=== PATIENT | female | born 1985 | race American Indian/Alaskan Native ===

== ENCOUNTER 2020-01-21 16:17 | Emergency (ER) | payer BC ==
[2020-01-21] MEDS ORDERED: FAMOTIDINE 20 MG/2 ML INJ IV ONE (16:40)
[2020-01-21] MEDS ORDERED: methylPREDNISolone Sod Succinate 125 MG/2 ML INJ IV ONE (16:40)
--- NOTE | 2020-01-21 16:40 | Emergency Department Report ---
HPI - General Chief Complaint: Allergic Reaction PUI?: No Time Seen by Provider: 01/21/20 16:33 - HPI HPI: 35-year-old female with a past medical history of asthma and hypertension presents to the hospital complaining of symptoms of allergic reaction. Since January 10 patient has had intermittent whelps, pruritus, and rashes. Today just before noon patient developed swelling and tingling to her left lower lip. She took 2 Benadryl tablets at noon but symptoms persist. She complains of some mild shortness of breath. Patient denies any new known exposures to lotions, soaps, foods, or medications. She takes lisinopril 10 mg daily since 2010 ED Past Medical Hx - Past Medical History Previous Medical History?: Yes Hx Hypertension: Yes Hx Asthma: Yes - Surgical History Past Surgical History?: No - Social History Smoking Status: Never Smoker - Medications Home Medications: Home Medications Medication Instructions Recorded Confirmed Last Taken Type Amlodipine Besylate [Norvasc] 5 mg PO DAILY #30 tablet 01/21/20 Unknown Rx EPINEPHrine [Epipen] 0.3 mg IJ PRN PRN #1 auto.injct 01/21/20 Unknown Rx Famotidine [Pepcid] 20 mg PO BID #20 tablet 01/21/20 Unknown Rx diphenhydrAMINE [Benadryl CAP] 1 - 2 tab PO Q6HR PRN #20 capsule 01/21/20 Unknown Rx predniSONE [Deltasone] 40 mg PO QDAY 5 Days tab 01/21/20 Unknown Rx ED Review of Systems ROS: Stated complaint: ALLERGIC REACTION Other details as noted in HPI Comment: All other systems reviewed and negative Physical Exam - Physical Exam Vital Signs: Vital Signs 01/21/20 16:25 Temperature 97.8 F Pulse Rate 112 H Respiratory 20 Rate Blood Pressure 137/87 O2 Sat by Pulse 97 Oximetry Physical Exam: General: No acute distress Head: Atraumatic Eyes: normal appearance ENT: Moist mucous membranes, no posterior pharyngeal swelling, no tongue swelling, left lower lip edema Neck: Normal appearance, no midline tenderness Chest: Clear to auscultation bilaterally CV: Regular rate and rhythm Abdomen: Soft, normal bowel sounds, nontender, nondistended, no rebound or guarding Back: Normal inspection Extremity: Normal inspection, full range of motion Neuro: Alert O x 3, no facial asymmetry, speech clear, no gross motor sensory de ficit Psych: Appropriate behavior Skin: Patient has urticarial rash to extremities, buttocks, and torso ED Course Vital Signs 01/21/20 16:25 Temperature 97.8 F Pulse Rate 112 H Respiratory 20 Rate Blood Pressure 137/87 O2 Sat by Pulse 97 Oximetry - Reevaluation(s) Reevaluation #1: 01/21/20 19:58 Patient feeling much better. Rash and pruritus have resolved. Lip swelling is improving. Patient denies shortness of breath ED Medical Decision Making - Medical Decision Making Patient presents with allergy symptoms. Patient is on lisinopril. Diagnosis is angioedema versus allergic reaction. Lisinopril discontinued. Norvasc will be provided. Patient improved with ED treatment of steroids, Benadryl, and Pepcid. Allergy meds will be prescribed - Differential Diagnosis Angioedema, allergic reaction Critical Care Time: No Critical care attestation.: If time is entered above; I have spent that time in minutes in the direct care of this critically ill patient, excluding procedure time. ED Disposition Clinical Impression: Angioedema, Allergic reaction Disposition: - TO HOME OR SELFCARE Is pt being admited?: No Does the pt Need Aspirin: No Condition: Stable Instructions: Angioedema (ED), Allergies (ED) Additional Instructions: Take the medication as prescribed. You have also been started on a new blood pressure medication called Norvasc. Discontinue the lisinopril and report this medication as an allergy/adverse reaction in the future. Follow-up with your doctor in [place]. Return if symptoms worsen as indicated by your discharge instructions. Prescriptions: diphenhydrAMINE [Benadryl CAP] 1 - 2 tab PO Q6HR PRN #20 capsule PRN Reason: Allergy Symptoms predniSONE [Deltasone] 40 mg PO QDAY 5 Days tab EPINEPHrine [Epipen] 0.3 mg IJ PRN PRN #1 auto.injct PRN Reason: Anaphylaxis Amlodipine Besylate [Norvasc] 5 mg PO DAILY #30 tablet Famotidine [Pepcid] 20 mg PO BID #20 tablet Referrals: PRIMARY CARE, [Primary Care Provider] - 3-5 Days Time of Disposition: 20:06
[2020-01-21] MEDS ORDERED: diphenhydrAMINE 50 MG/ML VIAL IV ONE (16:41)
[2020-01-23 12:45] VITALS: BP 119/71
== END 2020-01-21 20:20 | disposition home or self-care (01) ==
LOC: ED 16:17
DX: T78.3XXA Angioneurotic edema, initial encounter (principal); T78.40XA Allergy, unspecified, initial encounter; X58.XXXA Exposure to other specified factors, initial encounter
CPT/HCPCS: 96374; 96375; 99283; J1200; J2930